=== PATIENT | male | born 1990 | race American Indian/Alaskan Native ===

== ENCOUNTER 2017-03-19 22:07 | Emergency (ER) | payer SELFPAY ==
[2017-03-19 22:25] VITALS: BP 126/81; PULSE 60; RESP 18; TEMP 98; O2SAT 100
--- NOTE | 2017-03-19 23:14 | C.PDOC ---
History Of Present Illness 26 year old male presents to the ED with complaints of popping sounds in his right ear today following previous URI symptoms. Patient denies any fever, headache, or dizziness. Time Seen by Provider: 03/19/17 22:30 Chief Complaint (Nursing): ENT Problem History Per: Patient History/Exam Limitations: None Onset/Duration Of Symptoms: Hrs Current Symptoms Are (Timing): Still Present Quality (Ear): Other ("popping sounds" in the right year ) Anticoagulant/Antiplatlet Use?: No Recent Aspirin Use: No Past Medical History Reviewed: Historical Data, Nursing Documentation, Vital Signs Vital Signs: Last Vital Signs Temp 98 F 03/19/17 22:23 Pulse 60 03/19/17 22:23 Resp 18 03/19/17 22:23 BP 126/81 03/19/17 22:23 Pulse Ox 100 03/20/17 05:26 Family History: States: Unknown Family Hx - Social History Hx Alcohol Use: No Hx Substance Use: No Review Of Systems Constitutional: Negative for: Fever, Chills ENT: Positive for: Ear Pain. Negative for: Throat Pain Respiratory: Negative for: Cough, Shortness of Breath Gastrointestinal: Negative for: Nausea, Vomiting, Abdominal Pain, Diarrhea Neurological: Negative for: Headache Physical Exam - Physical Exam Appears: Non-toxic, No Acute Distress Skin: Warm, Dry Head: Atraumatic, Other (no facial swelling ) Eye(s): bilateral: Normal Inspection, PERRL Ear(s): Left: Normal, Right: Other (Mild effusion in the right TM with some erythema) Nose: No Discharge Oral Mucosa: Moist Throat: Normal, No Erythema, No Exudate Neck: Supple, Other (No neck swelling) Chest: No Deformity Cardiovascular: Rhythm Regular, No Murmur Respiratory: Normal Breath Sounds, No Wheezing, No Plerual Rub Neurological/Psych: Oriented x3 ED Course And Treatment O2 Sat by Pulse Oximetry: 100 (room air ) Disposition Counseled Patient/Family Regarding: Diagnosis, Need For Followup, Rx Given - Disposition Referrals: [facility] at [facility] [Outside] Disposition: HOME/ ROUTINE Disposition Time: 23:12 Condition: STABLE Additional Instructions: Please follow up with PMD / ENT Take meds as directed Return to ER if worse Prescriptions: Amoxicillin/Clavulanate [Augmentin 875 MG-125 MG] 1 tab PO BID #14 tab Cetirizine HCl [Zyrtec] 10 mg PO DAILY #20 capsule Instructions: Otitis Media (ED) - Clinical Impression Clinical Impression: Otitis media - Scribe Statement The provider has reviewed the documentation as recorded by the Scribe Elaine Barclay All medical record entries made by the Ediliaibfrancie were at my direction and personally dictated by me. I have reviewed the chart and agree that the record accurately reflects my personal performance of the history, physical exam, medical decision making, and the department course for this patient. I have also personally directed, reviewed, and agree with the discharge instructions and disposition.
== END 2017-03-19 23:19 | disposition home or self-care (01) ==
LOC: C.ER 22:07
DX: H66.90 Otitis media, unspecified, unspecified ear (principal)

== ENCOUNTER 2017-12-25 23:57 | Emergency (ER) | payer SELFPAY ==
--- NOTE | 2017-12-26 02:07 | C.PDOC ---
History Of Present Illness 27 year old male presents to the ED c/o burning sensation to his left upper chest that has been intermittent for the past 5 days. Patient reports his discomfort is usually exacerbated with caffeine intake, movement and inspiration. Patient reports he recently drove 8 hours back and forth from [place]. Patient denies SOB, palpitations, headache, leg swelling, weakness, numbness or past cardiac h/o Time Seen by Provider: 12/26/17 00:45 Chief Complaint (Nursing): Palpitations History Per: Patient History/Exam Limitations: no limitations Onset/Duration Of Symptoms: Days Current Symptoms Are (Timing): Still Present Quality: "Pain" Exacerbating Factors: Deep Breathing, Other (caffeine) Recent travel outside of the [place]: No Additional History Per: Patient Past Medical History Reviewed: Historical Data, Nursing Documentation, Vital Signs Vital Signs: Last Vital Signs Temp 98.9 F 12/26/17 03:21 Pulse 68 12/26/17 03:21 Resp 16 12/26/17 03:21 BP 105/63 12/26/17 03:21 Pulse Ox 97 12/26/17 03:45 - Medical History PMH: No Chronic Diseases Surgical History: No Surg Hx Family History: States: Unknown Family Hx - Social History Hx Alcohol Use: No Hx Substance Use: No - Immunization History Hx Tetanus Toxoid Vaccination: No Hx Influenza Vaccination: Yes Hx Pneumococcal Vaccination: No Review Of Systems Constitutional: Negative for: Fever, Chills Cardiovascular: Positive for: Chest Pain. Negative for: Palpitations Respiratory: Negative for: Shortness of Breath Gastrointestinal: Negative for: Nausea, Abdominal Pain Musculoskeletal: Negative for: Neck Pain, Back Pain Skin: Negative for: Rash Physical Exam - Physical Exam Appears: Non-toxic, No Acute Distress Skin: Normal Color, Warm, Dry Head: Atraumatic, Normacephalic Eye(s): bilateral: Normal Inspection Nose: No Discharge Oral Mucosa: Moist Neck: Normal ROM, Supple Chest: Symmetrical, Tenderness (left sided chest) Cardiovascular: Rhythm Regular, No Murmur Respiratory: Normal Breath Sounds, No Rales, No Rhonchi, No Wheezing Gastrointestinal/Abdominal: Soft, No Tenderness, No Guarding, No Rebound Extremity: Normal ROM, No Tenderness, Capillary Refill (< 2 seconds), No Swelling Neurological/Psych: Oriented x3 Gait: Steady ED Course And Treatment - Laboratory Results Result Diagrams: 12/26/17 01:23 ECG: Interpreted By Me, Viewed By Me ECG Rhythm: Sinus Rhythm Interpretation Of ECG: No acute ST/T wave changes Rate From EC O2 Sat by Pulse Oximetry: 97 (ON RA) Pulse Ox Interpretation: Normal Progress Note: Plan: - CXR. - EKG. - Labs. Labs reviewed and are within normal limits. Patient reports improvement to his symptoms and wishes to be D/C home. Return instructions were discussed with patient who understand and agreed with plan. Pt was advised to follow up with PMD in 2 days for further evaluation. Reevaluation Time: 03:22 Reassessment Condition: Improved Disposition Counseled Patient/Family Regarding: Diagnosis, Need For Followup, Rx Given - Disposition Referrals: [facility] at [facility] [Outside] Disposition: HOME/ ROUTINE Disposition Time: 03:36 Condition: STABLE Additional Instructions: Please follow up with PMD Tylenol or advil for pain Return to ER if worse Instructions: Chest Pain (DC) Forms: [facility] (Cuban), Work Excuse - Clinical Impression Clinical Impression: Nonspecific chest pain - PA / MOLDER MACHINE / Resident Statement MD/DO has reviewed & agrees with the documentation as recorded. - Scribe Statement The provider has reviewed the documentation as recorded by the Scribe Mj Green All medical record entries made by the Scribe were at my direction and personally dictated by me. I have reviewed the chart and agree that the record accurately reflects my personal performance of the history, physical exam, medical decision making, and the department course for this patient. I have also personally directed, reviewed, and agree with the discharge instructions and disposition.
[2017-12-26 02:09] LABS: CALCIUM 8.9 mg/dl (8.6-10.4); GFR AFRICAN-AMERICAN > 60; GFR NON-AFRICAN AMERICAN > 60
[2017-12-26 02:10] LABS: ALB/GLOB RATIO 1.5 (1.0-2.1); ALBUMIN 5.1 g/dL (3.5-5.0); ALT/SGPT 26 U/L (21-72); AST/SGOT 47 U/L (17-59); BLOOD UREA NITROGEN 15 mg/dL (9-20)
[2017-12-26 03:22] VITALS: BP 105/63; PULSE 68; RESP 16; TEMP 98.9
[2017-12-26 03:39] VITALS: O2SAT 97
--- NOTE | 2017-12-26 07:20 | RAD ---
Chest x-ray two views History: Chest pain. Comparison: None available. Findings: No focal infiltrate or effusion. Heart size within normal limits. Impression: No focal infiltrate or effusion.
[2017-12-26 07:22] LABS: BASO % 0.4 % (0.0-2.0); EOS # 0.1 K/uL (0.0-0.7); EOS % 1.1 % (0.0-4.0); HEMOGLOBIN 15.7 g/dL (12.0-18.0); LYMPH # 2.4 K/uL (1.0-4.3); LYMPH % 45.7 % (20.0-40.0); MEAN CELL VOLUME 88.4 fL (80.0-94.0); MEAN CORPUSCULAR HEMOGLOBIN 30.5 pg (27.0-31.0); MEAN CORPUSCULAR HGB CONC 34.5 g/dL (33.0-37.0); MEAN PLATELET VOLUME 9.2 fL (7.2-11.7); MONO # 0.5 K/uL (0.0-0.8); MONO % 9.4 % (0.0-10.0); NEUT # 2.3 K/uL (1.8-7.0); NEUT % 43.4 % (50.0-75.0); NRBC % 0.1 % (0.0-2.0); RBC 5.15 Mil/uL (4.40-5.90); RED CELL DISTRIBUTION WIDTH 13.7 % (11.5-14.5); WHITE BLOOD COUNT 5.4 K/uL (4.8-10.8)
--- NOTE | 2017-12-30 21:46 | CARD ---
APPROVED REPORT EKG Measurement Heart [id number] ND [id number] <Conclusion> Normal sinus rhythm with sinus arrhythmia Possible Left atrial enlargement Rightward axis Incomplete right bundle branch block Borderline ECG
== END 2017-12-26 03:50 | disposition home or self-care (01) ==
LOC: SUPCPDRO 23:57 → C.ER 23:57
DX: R07.9 Chest pain, unspecified (principal)